=== PATIENT | male | born 1950 | race Caucasian/White ===

== ENCOUNTER 2021-08-18 06:30 | Day surgery (SDC) | payer MEDICARE, MEDICAID ==
[~2021-08-18] VITALS: Ht 160 cm; Wt 85.5 kg
[~2021-08-18 06:30] MED LIST: CLON0.1T2 PO; LOSA-382 PO; MELA3TAB89 PO; METO25 PO; SERT-162 PO; SODIUM CHLORIDE 0.9% 1,000 ML ONE; TRAZ-257 PO
[2021-08-18] MEDS ORDERED: SODIUM CHLORIDE 0.9% 1,000 ML IV ONE (07:00)
[2021-08-18] MEDS ORDERED: DiphenhydrAMINE HCL 50 MG CAPSULE PO ONE (07:00)
[2021-08-18] MEDS ORDERED: ASPIRIN 81 MG CHEWABLE TABLET PO ONE (07:00)
[2021-08-18] MEDS ORDERED: DIAZEPAM 5 MG TABLET PO ONE (07:00)
[2021-08-18] MEDS ORDERED: DiphenhydrAMINE HCL 50 MG CAPSULE ONE (07:26)
[2021-08-18] MEDS ORDERED: DIAZEPAM 5 MG TABLET ONE (07:26)
[2021-08-18] MEDS ORDERED: ASPIRIN 81 MG CHEWABLE TABLET ONE (07:27)
[2021-08-18] MEDS ORDERED: SODIUM BICARBONATE 50 MEQ/50 ML VIAL ONE (08:56)
[2021-08-18] MEDS ORDERED: IOHEXOL 300 MG/ML 150 ML VIAL ONE (08:56)
[2021-08-18] MEDS ORDERED: IOHEXOL 300 MG/ML 50 ML VIAL ONE (08:56)
[2021-08-18] MEDS ORDERED: LIDOCAINE/PF 1% 30 ML VIAL ONE (08:56)
[2021-08-18] MEDS ORDERED: IOHEXOL 300 MG/ML 100 ML VIAL ONE (08:56)
[2021-08-18] MEDS ORDERED: HEPARIN SODIUM 1000 UNITS/NS 1,000 ML ONE (08:56)
[2021-08-18 09:04] VITALS: BP 149/68
[2021-08-18] MEDS ORDERED: MIDAZOLAM HCL 2 MG/2 ML VIAL ONE ×3 (09:06→10:12)
[2021-08-18] MEDS ORDERED: FentaNYL CITRATE PF 100 MCG/2 ML VIAL ONE ×3 (09:06→10:00)
[2021-08-18] MEDS ORDERED: FentaNYL CITRATE PF 100 MCG/2 ML VIAL IVP ONE ×5 (09:30→10:15)
[2021-08-18] MEDS ORDERED: IOHEXOL 300 MG/ML 150 ML VIAL ICOR ONE (09:30)
[2021-08-18] MEDS ORDERED: LIDOCAINE 1% 30 ML/SOD BICARB 8.4% 4 ML SQ ONE (09:30)
[2021-08-18] MEDS ORDERED: MIDAZOLAM HCL 2 MG/2 ML VIAL IVP ONE ×6 (09:30→10:15)
[2021-08-18] MEDS ORDERED: HEPARIN SODIUM 1000 UNITS/NS 1,000 ML IARTER ONE (09:30)
[2021-08-18] MEDS ORDERED: METOPROLOL TARTRATE 5 MG/5 ML VIAL ONE ×2 (09:36→09:54)
[2021-08-18] MEDS ORDERED: HEPARIN SODIUM,PORCINE 5,000 UNITS/ML VIAL IVP ONE (09:45)
[2021-08-18] MEDS ORDERED: TICAGRELOR 90 MG TABLET ONE ×2 (09:54→15:31)
[2021-08-18] MEDS ORDERED: METOPROLOL TARTRATE 5 MG/5 ML VIAL IVP ONE ×2 (10:00)
[2021-08-18] MEDS ORDERED: IOHEXOL 300 MG/ML 100 ML VIAL ICOR ONE (10:30)
[2021-08-18] MEDS ORDERED: IOHEXOL 300 MG/ML 50 ML VIAL ICOR ONE (10:30)
[2021-08-18] MEDS ORDERED: HYDR-4069 PO (15:41)
[2021-08-18] MEDS ORDERED: OMEP40CA21 PO (15:41)
[2021-08-18] MEDS ORDERED: MORP15TA9 PO (15:41)
[2021-08-18] MEDS ORDERED: NALO4SPR3 NASAL (15:41)
[2021-08-18] MEDS ORDERED: BUDE10.2 IH (15:41)
[2021-08-18] MEDS ORDERED: PREG50CA63 PO (15:41)
[2021-08-18] MEDS ORDERED: MELO-108 PO (15:41)
[2021-08-18] MEDS ORDERED: FLUT16H NASAL (15:41)
[2021-08-18] MEDS ORDERED: CLON1TAB12 PO (15:41)
[2021-08-18] MEDS ORDERED: TICAGRELOR 90 MG TABLET PO ONE ×3 (15:45→16:30)
== END 2021-08-18 16:30 | disposition home or self-care (01) ==
LOC: CATHLAB 06:30
PROVIDERS: ATTEND Internal Medicine Interventional Cardiology
DX: I25.110 Atherosclerotic heart disease of native coronary artery with unstable angina pectoris (principal); E78.5 Hyperlipidemia, unspecified; E11.9 Type 2 diabetes mellitus without complications; J43.9 Emphysema, unspecified; Z79.899 Other long term (current) drug therapy; I10 Essential (primary) hypertension; Z96.643 Presence of artificial hip joint, bilateral; Z98.890 Other specified postprocedural states; H54.8 Legal blindness, as defined in USA; Z87.891 Personal history of nicotine dependence
CPT/HCPCS: 92978; 92979; 93005; 93458; 99152; 99153; C1753; C1757; C1760; C1874 ×2; C1887; C9600; J1644; J2250; J3010; J3490 ×3; J7030; Q9967 ×3; 37236; 75960; 92928